=== PATIENT | female | born 1960 | race Caucasian/White ===

== ENCOUNTER 2018-03-28 15:12 | Emergency (ER) | payer SELFPAY ==
[~2018-03-28] VITALS: Wt 52.2 kg
[2018-03-28] MEDS ORDERED: ZOFRAN4 MG PO (15:29)
[2018-03-28] MEDS ORDERED: CLINDAMYCIN150 MG PO (15:29)
== END 2018-03-28 15:33 | disposition home or self-care (01) ==
LOC: ED 15:12
DX: L03.114 Cellulitis of left upper limb (principal); R03.0 Elevated blood-pressure reading, without diagnosis of hypertension; Z88.5 Allergy status to narcotic agent; Z88.6 Allergy status to analgesic agent

== ENCOUNTER → 2025-05-23 | Outpatient (CLI) | payer MEDICARE, OTHER ==
[~2025-05-23] MED LIST: CLINDAMYCIN150 MG PO; PREDNISONE50 MG PO; ZOFRAN4 MG PO
== END ==
LOC: CARD 10:06
PROVIDERS: ATTEND Internal Medicine
DX: I34.0 Nonrheumatic mitral (valve) insufficiency (principal); R06.02 Shortness of breath

== ENCOUNTER 2025-08-13 15:47 | Emergency (ER) | payer MEDICARE, OTHER ==
[~2025-08-13] VITALS: Ht 152.4 cm; Wt 50.3 kg
[2025-08-13] MEDS ORDERED: EPINEPHrine Hydrochloride 1 MG/ML AMP IM ONE (16:00)
[2025-08-13] MEDS ORDERED: FAMOTIDINE 50 ML IV ONE (16:00)
[2025-08-13] MEDS ORDERED: SODIUM CHLORIDE 0.9% 1,000 ML IV ONE (16:00)
[2025-08-13] MEDS ORDERED: Ondansetron Hydrochloride 4 MG/2 ML VIAL IV ONE (16:00)
[2025-08-13] MEDS ORDERED: EPIPEN 2-P0.3 MG/0.3 IJ (18:11)
[2025-08-13] MEDS ORDERED: PREDNISONE50 MG PO (18:11)
== END 2025-08-13 18:29 | disposition home or self-care (01) ==
LOC: ED 15:47
DX: T63.441A Toxic effect of venom of bees, accidental (unintentional), initial encounter (principal); T78.2XXA Anaphylactic shock, unspecified, initial encounter; Z88.6 Allergy status to analgesic agent; Z88.5 Allergy status to narcotic agent; Z88.1 Allergy status to other antibiotic agents; Z88.8 Allergy status to other drugs, medicaments and biological substances; X58.XXXA Exposure to other specified factors, initial encounter